=== PATIENT | male | born 1955 | race Hispanic/Latino ===

== ENCOUNTER → 2018-10-15 | Outpatient (CLI) | payer BC ==
[~2018-10-15] MED LIST: AZIL80TA PO; BUSP15TA3 PO; DOCU-282 PO; LISI40TA4 PO; LORA1TAB3 PO; METO-409 PO; OMEP40CA37 PO; PRAV20TA4 PO
== END | disposition home or self-care (01) ==
LOC: OIH 16:23
PROVIDERS: ATTEND Family Medicine
DX: R05 Cough (principal)
CPT/HCPCS: 71046